=== PATIENT | male | born 1995 | race Caucasian/White ===

== ENCOUNTER 2018-02-01 16:08 | Emergency (ER) | payer SELFPAY ==
[~2018-02-01] VITALS: Ht 180.3 cm; Wt 92.1 kg
[2018-02-01 16:24] VITALS: Ht 180.3 cm; Wt 92.1 kg
[2018-02-01 18:53] VITALS: BP 134/72
== END 2018-02-01 18:53 | disposition home or self-care (01) ==
LOC: ED 16:08
DX: R05 Cough (principal); I10 Essential (primary) hypertension; R06.02 Shortness of breath

== ENCOUNTER 2020-04-24 02:10 | Emergency (ER) | payer MEDICAID ==
[2020-04-24 02:27] VITALS: Ht 182.9 cm
[2020-04-24 06:58] VITALS: BP 126/71
== END 2020-04-24 06:58 | disposition home or self-care (01) ==
LOC: ED 02:10
DX: T15.01XA Foreign body in cornea, right eye, initial encounter (principal); W45.8XXA Other foreign body or object entering through skin, initial encounter; Y93.89 Activity, other specified; Y92.89 Other specified places as the place of occurrence of the external cause; Y99.8 Other external cause status
CPT/HCPCS: 90715